=== PATIENT | male | born 1955 | race Caucasian/White ===

== ENCOUNTER 2016-10-31 06:13 | Emergency (ER) | payer OTHER ==
--- NOTE | ~2016-10-31 | ER ---
PATIENT'S NAME: BILLY MANCINI [facility] AGE: 60 Y [address] ROOM: [place] [address] LOCATION: [facility] ADMIT DATE: 10/31/2016 ER/Outpatient Report DISCHARGE DATE: 10/31/2016 FAMILY PHYSICIAN: PHYSICIAN, NO ATTENDING PHYSICIAN: Janelle Boyd Time of Arrival: 0613 hours. Time Seen: 0637 hours. IDENTIFICATION: A 60-year-old male with chief complaint of laceration. HISTORY OF PRESENT ILLNESS: The patient is a 60-year-old male who was dropping off the trailer from the tractor today, dropping off the load of [employer]. When he was unhooking the trailer, he sustained a laceration to his right forearm hitting just a piece of teo metal. No fall, no other injury, no bony pain or tenderness. PAST MEDICAL HISTORY: Allergies: No known drug allergies. CURRENT MEDICATIONS: Atenolol. MEDICAL PROBLEMS: Hypertension. SOCIAL HISTORY: The patient lives in [place]. He drives truck. Tobacco use, denies. Alcohol use, 2 times per week. Drug use, denies. REVIEW OF SYSTEMS: All systems reviewed and negative other than what is noted in the HPI. Tetanus is current within the last year. PHYSICAL EXAMINATION: VITAL SIGNS: Height 6 feet 3 inches, weight 134.7 kg, blood pressure 151/83, pulse 87, respirations 16, temperature 96.9, and saturations 95% on room air. GENERAL: A 60-year-old male in no acute distress. HEENT: Unremarkable. LUNGS: Clear to auscultation. HEART: Regular rate and rhythm. EXTREMITIES: Full range of motion. No deformities noted. No bony tenderness. NEURO: The patient is alert and oriented x4. Cranial nerves 2 through 12 PATIENT'S NAME: BILLY MANCINI [facility] AGE: 60 Y [address] ROOM: [place] [address] LOCATION: [facility] ADMIT DATE: 10/31/2016 ER/Outpatient Report DISCHARGE DATE: 10/31/2016 FAMILY PHYSICIAN: PHYSICIAN, NO ATTENDING PHYSICIAN: Janelle Boyd grossly intact. Motor strength 5/5 throughout. Sensation is intact to light touch. The patient has an 11 cm laceration, right lateral forearm. The area was anesthetized and draped in sterile fashion. 1% Xylocaine without epinephrine was used for local anesthesia. The wound was irrigated copiously. Simple interrupted sutures were placed without difficulty x17 using 4-0 Ethilon. The patient tolerated the procedure well. No complications. IMPRESSION: An 11 cm right forearm laceration. PLAN: Wound care discussed. Pamphlet given. Tetanus is current. Tylenol as needed for pain. Follow up in 7-10 days for suture removal. Follow up sooner if any problems or concerns. MD GARIMA TEJEDA/carla /[id number] d: 10/31/16 1022 t: 10/31/16 1449, OUTPATIENT REPORT
== END 2016-10-31 07:23 | disposition disaster alternative care site (69) ==
LOC: GACC 06:13
PROC: 0HQDXZZ Repair Right Lower Arm Skin, External Approach (ICD-10-PCS; principal; 2016-10-31)
DX: S51.811A Laceration without foreign body of right forearm, initial encounter (principal); I10 Essential (primary) hypertension; Z79.899 Other long term (current) drug therapy; W26.8XXA Contact with other sharp object(s), not elsewhere classified, initial encounter; Y93.89 Activity, other specified; Y99.8 Other external cause status